=== PATIENT | male | born 1995 | race Caucasian/White ===

== ENCOUNTER 2022-04-23 14:02 | Outpatient (REF) | payer OTHER, SELFPAY ==
[2022-04-23 14:22] LABS: Strep A Nucleic Acid Negative (Negative)
== END 2022-04-23 14:03 | disposition home or self-care (01) ==
LOC: HO.LNP 14:02
PROVIDERS: Visit Provider Internal Medicine
DX: Z20.89 Contact with and (suspected) exposure to other communicable diseases (principal)
CPT/HCPCS: 87651

== ENCOUNTER 2022-10-31 14:38 | Outpatient (REF) | payer OTHER, SELFPAY ==
--- NOTE | ~2022-10-31 | XR_ITS ---
EXAMINATION: Bilateral shoulder. CLINICAL INDICATIONS: Pain. COMPARISON: None. TECHNIQUE: 3 views each shoulder. FINDINGS: Right shoulder: There is loss of glenohumeral joint space. The AC joint space is maintained. No visible acute fracture, dislocation or subluxation seen. No bony erosive changes. The soft tissues are normal. Left shoulder: The glenohumeral joint space is reduced. No visible acute fracture, dislocation or subluxation seen. No bony erosive changes. The soft tissues are normal. XR/XR shoulder RT min 2V IMPRESSION: Mild degenerative changes of both shoulder joints with loss of joint space. No acute fracture, dislocation or loose body seen.
--- NOTE | ~2022-10-31 | XR_ITS ---
EXAMINATION: Bilateral shoulder. CLINICAL INDICATIONS: Pain. COMPARISON: None. TECHNIQUE: 3 views each shoulder. FINDINGS: Right shoulder: There is loss of glenohumeral joint space. The AC joint space is maintained. No visible acute fracture, dislocation or subluxation seen. No bony erosive changes. The soft tissues are normal. Left shoulder: The glenohumeral joint space is reduced. No visible acute fracture, dislocation or subluxation seen. No bony erosive changes. The soft tissues are normal. XR/XR shoulder LT min 2V IMPRESSION: Mild degenerative changes of both shoulder joints with loss of joint space. No acute fracture, dislocation or loose body seen.
[2022-10-31 15:18] LABS: MANUAL DIFF FLAG NO
[2022-10-31 15:21] LABS: Basophils Percent Auto 0.3 % (0-2); Eosinophils Absolute Auto 0.1 X10*3/uL (0.0-0.4); Eosinophils Percent Auto 1.7 % (0-4); Hematocrit 44.3 % (42.0-52.0); Imm Gran Abs Auto 0.01 X10*3/uL (0.00-0.03); Imm Gran Pct Auto 0.2 % (0.0-0.4); Lymphocytes Absolute Auto 1.9 X10*3/uL (1.2-4.9); Lymphocytes Percent Auto 32.6 % (20-40); Mean Corpuscular HGB Conc 33.9 g/dl (31.0-36.0); Mean Corpuscular Hemoglobin 29.4 pg (27.0-33.0); Mean Corpuscular Volume 86.7 fL (80.0-98.0); Mean Platelet Volume 10.1 fL (9.4-12.4); Monocytes Absolute Auto 0.6 X10*3/uL (0.1-1.2); Monocytes Percent Auto 9.4 % (2-11); Neutrophils Absolute Auto 3.3 x10*3/uL (2.0-8.3); Neutrophils Percent Auto 55.8 % (45-73); Platelet Count 250 X10*3/uL (160-400); Red Blood Count 5.11 X10*6/uL (4.60-5.80); Red Cell Distribution Width 12.1 % (11.0-16.0)
[2022-10-31 15:27] LABS: Estimated Average Glucose 105 mg/dL; Hemoglobin A1c % 5.3 %
[2022-10-31 16:10] LABS: Alanine Aminotransferase 27 U/L (0-40); Albumin Level 4.7 g/dL (3.5-5.0); Alkaline Phosphatase 68 U/L (39-117); Anion Gap 13 (12-20); Aspartate Amino Transferase 25 U/L (5-37); Bilirubin Total 0.5 mg/dL (0.0-1.0); Blood Urea Nitrogen 17 mg/dL (9-16); Calcium 9.8 mg/dL (8.4-10.2); Carbon Dioxide 29 mmol/L (22-29); Chloride 104 mmol/L (96-108); Estimated Glomerular Filt Rate > 60; Glucose Random 86 mg/dL (60-115); Iron 111 mcg/dL (45-160); Percent Iron Saturation 34 % (15-50); Potassium 4.6 mmol/L (3.3-5.1); Sodium 141 mmol/L (135-145); Total Iron Binding Capacity 322 mcg/dL (228-428); Total Protein 7.8 g/dL (6.5-8.0); Unsaturated Iron Binding 211 ug/dL
[2022-10-31 16:38] LABS: Folate 12.7 ng/mL (> or = 4.0); Vitamin B12 366 pg/mL (200-900)
[2022-11-05 14:59] LABS: Vitamin D 25-OH, D2 <4 ng/mL; Vitamin D 25-OH, D3 21 ng/mL; Vitamin D 25-OH, Total 21 ng/mL (30-100)
[2022-11-05 23:08] LABS: Testosterone, Free 42.6 pg/mL (35.0-155.0); Testosterone, Total 238 ng/dL (250-1100)
== END 2022-10-31 14:39 | disposition home or self-care (01) ==
LOC: HO.HMGCX 14:38
PROVIDERS: PCP Internal Medicine; Visit Provider Nurse Practitioner Acute Care
DX: M25.511 Pain in right shoulder (principal); M25.512 Pain in left shoulder; R53.83 Other fatigue
CPT/HCPCS: 36415; 73030; 80053; 82306; 82607; 82746; 83036; 83540; 84402; 84403; 85025

== ENCOUNTER 2022-11-28 09:54 | Outpatient (REF) | payer OTHER, SELFPAY ==
[2022-11-28 10:32] LABS: Basophils Percent Auto 0.3 % (0-2); Hematocrit 40.8 % (42.0-52.0); Hemoglobin 13.8 g/dl (14.0-18.0); Imm Gran Abs Auto 0.01 X10*3/uL (0.00-0.03); Imm Gran Pct Auto 0.3 % (0.0-0.4); Lymphocytes Percent Auto 31.5 % (20-40); MANUAL DIFF FLAG SCAN; Mean Corpuscular HGB Conc 33.8 g/dl (31.0-36.0); Mean Corpuscular Hemoglobin 28.5 pg (27.0-33.0); Mean Corpuscular Volume 84.3 fL (80.0-98.0); Mean Platelet Volume 9.6 fL (9.4-12.4); Monocytes Absolute Auto 0.9 X10*3/uL (0.1-1.2); Monocytes Percent Auto 30.5 % (2-11); Neutrophils Absolute Auto 1.1 x10*3/uL (2.0-8.3); Neutrophils Percent Auto 36.4 % (45-73); Platelet Count 178 X10*3/uL (160-400); Red Blood Count 4.84 X10*6/uL (4.60-5.80); Red Cell Distribution Width 11.9 % (11.0-16.0); SCAN SMEAR FLAG 1; White Blood Count 3.1 X10*3/uL (4.8-10.8)
[2022-11-28 10:47] LABS: Alanine Aminotransferase 25 U/L (0-40); Albumin Level 4.4 g/dL (3.5-5.0); Alkaline Phosphatase 55 U/L (39-117); Anion Gap 12 (12-20); Aspartate Amino Transferase 25 U/L (5-37); Bilirubin Total 0.7 mg/dL (0.0-1.0); Blood Urea Nitrogen 17 mg/dL (9-16); Calcium 9.2 mg/dL (8.4-10.2); Carbon Dioxide 25 mmol/L (22-29); Chloride 108 mmol/L (96-108); Cholesterol 190 mg/dL; Estimated Glomerular Filt Rate > 60; Glucose Random 95 mg/dL (60-115); HDL Cholesterol 39 mg/dL; LDL Cholesterol Calculated 142 mg/dl; Potassium 4.2 mmol/L (3.3-5.1); Sodium 141 mmol/L (135-145); Total Protein 7.2 g/dL (6.5-8.0); Triglycerides 49 mg/dL
[2022-11-28 10:58] LABS: SLIDE REVIEW VERIFIED
== END 2022-11-28 09:55 | disposition home or self-care (01) ==
LOC: HO.LAB 09:54
PROVIDERS: PCP Internal Medicine; Visit Provider Internal Medicine
DX: Z00.00 Encounter for general adult medical examination without abnormal findings (principal)
CPT/HCPCS: 36415; 80053; 80061; 85025

== ENCOUNTER 2022-12-01 16:16 | Outpatient (REF) | payer OTHER, SELFPAY ==
[2022-12-01 18:42] LABS: Monotest Negative (Negative)
== END 2022-12-01 16:17 | disposition home or self-care (01) ==
LOC: HO.LAB 16:16
PROVIDERS: PCP Internal Medicine; Visit Provider Internal Medicine
DX: R53.83 Other fatigue (principal)
CPT/HCPCS: 36415; 86308

== ENCOUNTER 2022-12-03 16:00 | Outpatient (REF) | payer OTHER, SELFPAY ==
[2022-12-03 17:53] LABS: Immature Retic Fraction 7.3 % (2.3-13.4); Reticulocyte Percent 1.4 % (0.5-1.8); Reticulocytes Absolute 0.069 X10*6/uL (0.026-0.095)
[2022-12-03 18:13] LABS: Lactate Dehydrogenase 216 U/L (118-273)
[2022-12-03 18:34] LABS: Free T4 (Free Thyroxine) 1.01 ng/dL (0.71-1.85); Thyroid Stimulating Hormone 0.99 uIU/mL (0.32-4.0)
[2022-12-04 21:53] LABS: Thyroid Peroxidase Antibodies 7 IU/mL (<9)
== END 2022-12-03 16:01 | disposition home or self-care (01) ==
LOC: HO.LAB 16:00
PROVIDERS: PCP Internal Medicine; Visit Provider Internal Medicine
DX: R53.83 Other fatigue (principal); D64.9 Anemia, unspecified; D72.819 Decreased white blood cell count, unspecified
CPT/HCPCS: 36415; 83615; 84439; 84443; 85045; 86376

== ENCOUNTER 2022-12-23 12:28 | Outpatient (REF) | payer OTHER, SELFPAY ==
[2022-12-23 13:23] LABS: MANUAL DIFF FLAG NO
[2022-12-23 13:26] LABS: Basophils Percent Auto 0.2 % (0-2); Eosinophils Absolute Auto 0.1 X10*3/uL (0.0-0.4); Eosinophils Percent Auto 1.3 % (0-4); Hemoglobin 14.5 g/dl (14.0-18.0); Imm Gran Abs Auto 0.01 X10*3/uL (0.00-0.03); Imm Gran Pct Auto 0.2 % (0.0-0.4); Lymphocytes Absolute Auto 1.6 X10*3/uL (1.2-4.9); Lymphocytes Percent Auto 30.2 % (20-40); Mean Corpuscular HGB Conc 34.5 g/dl (31.0-36.0); Mean Corpuscular Hemoglobin 28.9 pg (27.0-33.0); Mean Corpuscular Volume 83.8 fL (80.0-98.0); Mean Platelet Volume 9.8 fL (9.4-12.4); Monocytes Absolute Auto 0.6 X10*3/uL (0.1-1.2); Monocytes Percent Auto 11.8 % (2-11); Neutrophils Percent Auto 56.3 % (45-73); Platelet Count 230 X10*3/uL (160-400); Red Blood Count 5.01 X10*6/uL (4.60-5.80); Red Cell Distribution Width 12.2 % (11.0-16.0); White Blood Count 5.3 X10*3/uL (4.8-10.8)
[2022-12-23 13:54] LABS: C Reactive Protein < 0.10 mg/dL (< or = 0.50)
[2022-12-23 14:16] LABS: Erythrocyte Sedimentation Rate 6 MM/HR (0-15)
== END 2022-12-23 12:29 | disposition home or self-care (01) ==
LOC: HO.10HDL 12:28
PROVIDERS: Visit Provider Internal Medicine
DX: D64.9 Anemia, unspecified (principal); R53.83 Other fatigue
CPT/HCPCS: 36415; 85025; 85652; 86140

== ENCOUNTER 2024-04-26 14:59 | Outpatient (REF) | payer BC, SELFPAY ==
[2024-04-26 15:15] LABS: MANUAL DIFF FLAG NO
[2024-04-26 15:56] LABS: Basophils Percent Auto 0.3 % (0-2); Eosinophils Absolute Auto 0.1 X10*3/uL (0.0-0.4); Eosinophils Percent Auto 0.9 % (0-4); Hemoglobin 14.7 g/dl (14.0-18.0); Imm Gran Abs Auto 0.02 X10*3/uL (0.00-0.03); Imm Gran Pct Auto 0.3 % (0.0-0.4); Lymphocytes Absolute Auto 2.2 X10*3/uL (1.2-4.9); Lymphocytes Percent Auto 29.3 % (20-40); Mean Corpuscular HGB Conc 35.9 g/dl (31.0-36.0); Mean Corpuscular Hemoglobin 30.1 pg (27.0-33.0); Mean Corpuscular Volume 83.8 fL (80.0-98.0); Mean Platelet Volume 9.8 fL (9.4-12.4); Monocytes Absolute Auto 0.7 X10*3/uL (0.1-1.2); Monocytes Percent Auto 9.2 % (2-11); Neutrophils Absolute Auto 4.6 x10*3/uL (2.0-8.3); Platelet Count 246 X10*3/uL (160-400); Red Blood Count 4.89 X10*6/uL (4.60-5.80); White Blood Count 7.6 X10*3/uL (4.8-10.8)
[2024-04-26 16:44] LABS: Anion Gap 10 (12-20); Blood Urea Nitrogen 12 mg/dL (9-16); Calcium 10.2 mg/dL (8.4-10.2); Carbon Dioxide 30 mmol/L (22-29); Chloride 103 mmol/L (96-108); Estimated Glomerular Filt Rate > 60; Glucose Random 84 mg/dL (60-115); Potassium 3.9 mmol/L (3.3-5.1); Sodium 139 mmol/L (135-145)
[2024-04-30 15:32] LABS: Testosterone, Free 46.3 pg/mL (35.0-155.0); Testosterone, Total 291 ng/dL (250-1100)
== END 2024-04-26 15:00 | disposition home or self-care (01) ==
LOC: HO.LAB 14:59
PROVIDERS: PCP Internal Medicine; Visit Provider Internal Medicine
DX: E55.9 Vitamin D deficiency, unspecified (principal); E29.1 Testicular hypofunction; M54.2 Cervicalgia
CPT/HCPCS: 36415; 80048; 82306; 84402; 84403; 85025

== ENCOUNTER 2024-09-12 12:17 | Outpatient (REF) | payer BC, SELFPAY ==
[2024-09-12 13:03] LABS: Basophils Percent Auto 0.5 % (0-2); Eosinophils Absolute Auto 0.1 X10*3/uL (0.0-0.4); Eosinophils Percent Auto 1.2 % (0-4); Hematocrit 40.7 % (42.0-52.0); Hemoglobin 14.4 g/dl (14.0-18.0); Lymphocytes Absolute Auto 1.7 X10*3/uL (1.2-4.9); Lymphocytes Percent Auto 40.9 % (20-40); MANUAL DIFF FLAG NO; Mean Corpuscular HGB Conc 35.4 g/dl (31.0-36.0); Mean Corpuscular Hemoglobin 29.9 pg (27.0-33.0); Mean Corpuscular Volume 84.6 fL (80.0-98.0); Mean Platelet Volume 9.6 fL (9.4-12.4); Monocytes Absolute Auto 0.4 X10*3/uL (0.1-1.2); Monocytes Percent Auto 9.6 % (2-11); Neutrophils Percent Auto 47.8 % (45-73); Platelet Count 210 X10*3/uL (160-400); Red Blood Count 4.81 X10*6/uL (4.60-5.80); Red Cell Distribution Width 11.8 % (11.0-16.0); White Blood Count 4.3 X10*3/uL (4.8-10.8)
--- OUTSIDE RECORDS SUMMARY | 2024-09-12 13:11 | XMS_ITS | Data Portability ---
Author Organization [facility] Address [address] [place] [address] Assessment No assessment recorded. Plan of Treatment Reminders Order Date Submit Date Provider Last Modified By Organization Details Last Modified Time Details Appointments None record ed. Lab None record ed. Referral None record ed. Procedures None record ed. Surgeries None record ed. Imaging None record ed. Medication Orders None record ed. Patient TargetsNo targets recorded. Patient InstructionsNo instructions recorded. Reason for Referral None Reported. Procedures Surgical History Date Name Laterality Status Provider Name and Address Organization Details Recorded Time OC-UDS Send Out Template DOT completed [facility]INA [facility] 08/28/2022 13:15:22 Imaging Results None recorded. Procedure Notes None recorded. Medical Equipment None Reported. Vitals None Recorded Social History None recorded. Functional Status None recorded. Mental Status None recorded. Family History Nothing Reported. Medical History No medical history recorded. Past Encounters Encounter ID Performer Location Encounter Start Date Encounter Closed Date Diagnosis/Indication Diagnosis SNOMED-CT Code Diagnosis ICD10 Code Diagnosis Note [id number] [address] [address] 12/02/2015 16:22:06 12/02/2015 18:56:21 [id number] Francesco Batista DO [address] [place] [address] 08/28/2022 13:00:32 08/28/2022 13:23:33 History and physical examination, pre-employment 634368325 Z02.1 Health Concerns Section Related Observation LastModified by Organization Detai ls LastModified Time None Recorded Concern Status LastModified by Organization Details LastModified Time None Recorded Advance Directives Directive None Recorded Payers Encounter Date Sequence Insurance Name Policy Number Policy Santillan Covered Member ID Santillan Member ID Guarantor Name 12/02/2015 1 [place] JUANCARLOS (PPO) [id number] Eloise Laboy [id number] Yuniel Laboy 08/28/2022 OC-ESCREEN Yuniel Laboy [id number] ZW Yuniel Laboy
[2024-09-12 15:19] LABS: Alanine Aminotransferase 17 U/L (0-40); Albumin Level 4.7 g/dL (3.5-5.0); Anion Gap 11 (12-20); Aspartate Amino Transferase 22 U/L (5-37); Bilirubin Total 0.5 mg/dL (0.0-1.0); Blood Urea Nitrogen 14 mg/dL (9-16); Calcium 9.8 mg/dL (8.4-10.2); Carbon Dioxide 28 mmol/L (22-29); Chloride 104 mmol/L (96-108); Cholesterol 158 mg/dL (<200); Estimated Glomerular Filt Rate > 60; Glucose Fasting 92 mg/dL (60-99); HDL Cholesterol 45 mg/dL (>40); LDL Cholesterol Calculated 93 mg/dL (<100); Potassium 4.2 mmol/L (3.3-5.1); Sodium 139 mmol/L (135-145); Total Protein 8.2 g/dL (6.5-8.0); Triglycerides 100 mg/dL (<150)
[2024-09-12 15:57] LABS: Alkaline Phosphatase 42 U/L (39-117)
[2024-09-16 15:09] LABS: Testosterone, Free 79.8 pg/mL (35.0-155.0); Testosterone, Total 508 ng/dL (250-1100)
[2024-09-16 17:28] LABS: VITAMIN D (1,25 OH) D3 33 pg/mL; Vit D (1,25-Dihydroxy) Total 33 pg/mL (18-72); Vitamin D (1,25 OH) D2 <8 pg/mL
== END 2024-09-12 12:18 | disposition home or self-care (01) ==
LOC: HO.10HDL 12:17
PROVIDERS: Visit Provider Internal Medicine
DX: D64.9 Anemia, unspecified (principal); R53.83 Other fatigue; E29.1 Testicular hypofunction
CPT/HCPCS: 36415; 80053; 80061; 82652; 84402; 84403; 85025

== ENCOUNTER 2024-10-05 14:43 | Outpatient (AMB) | payer BC, SELFPAY ==
--- NOTE | 2024-10-05 14:49 | MHC.OFFVIS ---
Vital Signs 10/05/24 14:53 Height 5 ft 9 in Weight 184 lb 6 oz BMI 27.2 BP 141/84 H Blood Pressure Location Rt brachial Position Sitting Pulse 87 Pulse Source Pulse Oximeter Pulse Oximetry (%) 100 Oxygen Delivery Method Room Air Intake Visit Reasons: Back pain radiating to left leg Intake Note: Pain today 2/10 Change Over Required: No Accompanied by: Self / Same As Patient Allergies No Known Allergies Allergy (Verified 10/31/22 14:20) HPI Comments Details: Yuniel is a very pleasant 29-year-old male who presents to the office today for evaluation and management of his left lower back pain He has been suffering with this pain for approximately 8 months, denies inciting injury, fall, trauma. Pain today is rated as a 2/10, constant and worse with movement Recent MRI reviewed, results as per below Denies radiculopathy of either lower extremity Endorses left lower back pain with radiation down back of his left thigh and up to the left lower back. Occasionally pain will radiate around to the side of his hip. Denies burning, numbness, tingling lower extremity Denies red flag symptoms including new loss of bowel, bladder or saddle anesthesia Pain is exacerbated by sitting for too long, standing for too long, utilizing the stairs. Patient works as a local combination truck driver and states that pain is most severe he is driving for work. He reports some improvement with ibuprofen. No improvement with muscle relaxer, chiropractor. Denies history of physical therapy, acupuncture, massage or injections In terms of muscle damage condition is described as dull, sore, aching, heavy, spreading, tight, squeezing Pain is negatively impacting patient's enjoyment of life, general activity, sleep, work Denies implantable devices, pacemaker or defibrillator Denies current use of anticoagulants Endorses use of vape. Social EtOH use. Denies recreational substance use. [facility] Medical History (Updated 10/05/24 @ 15:01 by Christine Stinson) Constipation GERD (gastroesophageal reflux disease) Anxiety Palpitations Labyrinthitis, bilateral Other specified dorsopathies, sacral and sacrococcygeal region Pain in left hip Other obesity due to excess calories Iron deficiency anemia, unspecified Abnormal level of enzymes in specimens from male genital organs Acute pharyngitis, unspecified Low testosterone Anemia Fatigue Vitamin D deficiency Social History Alcohol intake: current Alcohol intake frequency: a few times a month e-Cigarette/Vaping Use: Currently Using Review of Systems Const All systems reviewed & are unremarkable except as noted in HPI and below Physical Exam General: awake, alert, oriented. Answers questions appropriately. Fully engaged in examination. Skin: warm, dry, intact HEENT: Normocephalic. Hearing intact. Cardiac: External chest normal in appearance. Respiratory: No cough, audible wheezing or stridor. Abdomen: without gross distension. MS: No obvious swelling or deformities. Able to stand on bilateral tiptoes and bilateral heels.? Able to transition from sit to stand unassisted. Ambulates with bilaterally normal heel strike and toe off Tenderness over left PSIS Nontender over midline lumbar vertebrae and lumbar paraspinal muscles Left SI: Thigh thrust, Gaenslen, SI compression positive SLR negative bilaterally Lumbar range of motion intact No pain with internal/external rotation of the left hip Neurological: Oriented to person, place, time and situation. Thought process intact. No gait abnormalities appreciated. Psychiatric: Appropriate mood and affect. Good judgment and insight. Results Reviewed Results Reviewed: 08/31/2024 MR SPINE LUMBAR without CONTRAST INDICATION: Low back pain, stiffness in back and left hip, left leg pain for six months. FINDINGS: Normal lumbar alignment is demonstrated. Vertebral heights are well maintained. Bone marrow signal is within normal limits, and no suspicious osseous lesion is identified. Conus medullaris is unremarkable. Paraspinal soft tissues and visualized portions of the abdomen and pelvis are unremarkable. At L1-2 there is no significant disc herniation or protrusion. No central canal or neural foraminal stenosis is demonstrated. At L2-3 there is no significant disc herniation or protrusion. No central canal or neural foraminal stenosis is demonstrated. At L3-4 there is no significant disc herniation or protrusion. No significant canal stenosis, mild bilateral foraminal narrowing. At L4-5 there is no significant disc herniation or protrusion. No significant canal stenosis, vzfg-ze-wlkiqjqe bilateral foraminal narrowing. At L5-S1 there is no significant disc herniation or protrusion. No significant canal stenosis, qhxc-ic-unqsapeb bilateral foraminal narrowing. IMPRESSION: 1.Jfzr-rq-apgapwoo multilevel degenerative disc disease with loss of disc height and disc desiccation seen diffusely throughout the lumbar spine. 2.Vertebral heights are preserved. No malalignments. 3.No significant canal stenosis or disc herniation. 4.No limiting foraminal stenosis. Multilevel canal and foraminal narrowing are mild/flfr-ie-mivxcdwb. 5.No STIR signal abnormality to suggest bone marrow edema, soft tissue or ligamentous injury. Assessment & Plan Assessment & Plan (1) Sacroiliac joint dysfunction of left side: Code(s): M53.3 - Sacrococcygeal disorders, not elsewhere classified Category: Medical Plan Yuniel is a very pleasant 29-year-old male who presented to the office today for evaluation and management of his chronic lower back pain History, physical exam and provocative testing consistent with left sacroiliac joint dysfunction Order placed for PT eval and treat Salonpas topical patches, patient instructed on use. Discussed options for treatment including diagnostic interventional testing, epidural steroid injections, peripheral nerve stimulation with Sprint, RFA and more permanent neuromodulation. If no improvement with physical therapy will plan for left diagnostic sacroiliac joint injection with local anesthetic. All questions and concerns were answered, patient agrees with the plan. Follow up after PT, sooner if needed Medications: New camphor-methyl salicyl-menthol 3.1 %-10 %-6 % (large) (Salonpas) may leave on for up to 12 hrs 1 patch topical DAILY PRN 6 ea 6RF pain Coding Level of Care Code New Pt Level 4 (27159) Complex EM visit Add On G2211 Diagnoses Sacroiliac joint dysfunction of left side M53.3
[2024-10-05 14:53] VITALS: BP 141/84; PULSE 87; O2SAT 100; BMI 27.2
--- OUTSIDE RECORDS SUMMARY | 2024-10-05 15:51 | XMS_ITS | Data Portability ---
Author Organization [facility] Address [address] [place] [address] Assessment No assessment recorded. Plan of Treatment [...] SNOMED-CT Code Diagnosis ICD10 Code Diagnosis Note [id number] [address] [address] 12/02/2015 16:22:06 12/02/2015 18:56:21 [id number] Francesco Batista DO [address] [place] [address] 08/28/2022 13:00:32 08/28/2022 13:23:33 History and physical examination, pre-employment [id number] Z02.1 Health Concerns Section Related Observation LastModified by Organization Detai ls LastModified Time None Recorded Concern Status LastModified by Organization Details LastModified Time None Recorded Advance Directives Directive None Recorded Payers Encounter Date Sequence Insurance Name Policy Number Policy Santillan Covered Member ID Santillan Member ID Guarantor Name 12/02/2015 1 [place]UANCARLOS ([place]O) [id number] Eloise Laboy [id number] Yuniel Laboy 08/28/2022 OC-ESCREEN Yuniel Laboy [id number] Yuniel Laboy
== END 2024-10-05 15:23 | disposition home or self-care (01) ==
PROVIDERS: PCP Internal Medicine; Referring Provider Internal Medicine; Visit Provider Registered Nurse Emergency
DX: M53.3 Sacrococcygeal disorders, not elsewhere classified (principal)
CPT/HCPCS: 99204

== ENCOUNTER → 2024-12-20 16:00 | Outpatient (AMB) | payer BC, SELFPAY ==
--- NOTE | 2024-12-20 16:24 | A.OFFPC_ITS ---
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 Accompanied by: Self / Same As Patient Allergies No Known Allergies Allergy (Verified 12/20/24 16:28) Tobacco use date assessed: 12/20/24 Dental Screening Dental Screen Date: 12/20/24 Did you have a dental visit in the last 12 months?: No Did you have a dental problem in the last 6 months where you did not have access to dental care?: No Was dental information given to patient?: Patient has dentist HPI HPI Comments History of Present Illness Details 29-year-old male with history of chronic low back pain and insomnia as well as mood disorder presents to the office today for follow-up evaluation for ongoing short-term disability. back pain. The patient has been suffering from midline and left-sided low back pain with left-sided radiculopathy ongoing for about 8 months. No known inciting injury or trauma. He did have MRI of the lumbar spine performed externally which showed jjww-me-oytlxgex multilevel degenerative disc disease with loss of disc height and disc desiccation diffusely throughout the lumbar spine. Vertebral heights preserved without any malalignment. No canal stenosis or disc herniation. No limiting foraminal stenosis though mild to moderate foraminal narrowing is noted. He has been seen by pain management who recommended physical therapy which he reports he did complete for about 4 weeks but was not recommended for further therapy. 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 He states sometimes th e pain is so bad that he feels nauseous. He has been taking ibuprofen but states he does not like taking much medication out of concern for his renal and liver function. No alarm symptoms. He is also struggling with insomnia. He states this is partly related to pain but has always had difficulty with sleeping. He has trialed a number of supplements without relief. He has a reasonable bedtime routine without overstimulation. He does endorse having anxiety and depression but has not sought out treatment for this. He is inquiring about a sleep study. Denies snoring or apneic episodes. He did recently have labs performed which were largely within normal limits/unremarkable. [facility] Medical History (Updated 12/20/24 @ 17:37 by JENNIFER Mejía) Constipation GERD (gastroesophageal reflux disease) Anxiety Palpitations Labyrinthitis, bilateral Other specified dorsopathies, sacral and sacrococcygeal region Pain in left hip Other obesity due to excess calories Iron deficiency anemia, unspecified Abnormal level of enzymes in specimens from male genital organs Acute pharyngitis, unspecified Low testosterone Anemia Fatigue Vitamin D deficiency Family History (Updated 12/20/24 @ 16:33 by YISEL Odonnell) Mother No problems noted. Father No problems noted. Social History (Updated 12/20/24 @ 16:34 by YISEL Odonnell) Housing: Apartment Alcohol intake: current Alcohol intake frequency: holidays/special occasions only Tobacco use type: Smokeless Tobacco e-Cigarette/Vaping Use: Currently Using service: No Current occupational status: employed Cognitive needs: No Hearing needs: No Vision needs: Yes (Rx glasses) Questionnaire PHQ-9 Over the last 2 weeks, how often have you been bothered by any of the following problems? 1. Little interest or pleasure in doing things: more than half the days 2. Feeling down, depressed, or hopeless: more than half the days 3. Trouble falling or staying asleep, or sleeping too much: nearly every day 4. Feeling tired or having little energy: nearly every day 5. Poor appetite or overeating: not at all 6. Feeling bad about yourself - or that you are a failure or have let yourself or your family down: more than half the days 7. Trouble concentrating on things, such as reading the newspaper or watching television: more than half the days 8. Moving or speaking so slowly that other people could have noticed. Or the opposite - being so fidgety or restless that you have been moving around a lot more than usual: not at all 9. Thoughts that you would be better off or of hurting yourself in some way: not at all Total score: 14 Source: Developed by Drs. Bartolo Cook, Rhina Finch, Be Ashby and colleagues, with an educational zayda from [employer]. Thrive Questionnaire Date Thrive assessed: 12/20/24 I am a: Patient What is your living situation today?: I have a steady place to live Within the past 12 months, did the food you bought not last and you didn't have the money to get more?: Never true Within the past 12 months, did you worry whether your food would run out before you got money to buy more?: Never true Do you have trouble paying for medicines?: No Do you have trouble getting transportation to medical appointments?: No Do you have trouble paying your heating and electricity bill?: No Do you have trouble taking care of your child, family member or friend?: No Do you have trouble with day-to-day activities such as bathing, preparing meals, shopping, managing finances, etc.?: No Are you currently unemployed and looking for a job?: No Are you interested in more education?: No Please select the resources that you would like help with: None THRIVE Score: 0 AUDIT C Alcohol Use Questionnaire (AUDIT-C) 1. How often do you have a drink containing alcohol?: Monthly or less Total Score: 1 ROOSEVELT-7 AMB Questionnaire ROOSEVELT-7 Date ROOSEVELT - 7 assessed: 12/20/24 Feeling nervous, anxious, or on edge: 3 = Nearly every day Not being able to stop or control worryin = Nearly every day Worrying too much about different things: 3 = Nearly every day Trouble relaxin = More than half the days Being so restless that it is hard to sit still: 3 = Nearly every day Becoming easily annoyed or irritable: 2 = More than half the days Feeling afraid as if something awful might happen: 2 = More than half the days Total ROOSEVELT-7 score (0-4 normal; 5-9 mild; 10-14 moderate; 15-21 severe): 18 Source: Developed by Drs. Bartolo Cook, Rhina Finch, Be Ashby and colleagues, with an educational zayda from [employer]. Review of Systems Const All systems reviewed & are unremarkable except as noted in HPI and below Physical exam (Primary Care) Vital Signs: Last Vital Signs Temp 98.0 F 12/20/24 16:34 Pulse 100 12/20/24 16:34 BP 124/76 12/20/24 16:34 Pulse Ox 99 12/20/24 16:34 Oxygen Delivery Method Room Air 12/20/24 16:34 BMI result Body Mass Index 28.2 Tobacco/Smoking Status: Tobacco use Status Tobacco use date assessed 12/20/24 12/20/24 16:28 Patient Tobacco Use Status 12/20/24 16:28 Tobacco use type Smokeless Tobacco 12/20/24 16:28 e-Cigarette/Vaping Use Currently Using 12/20/24 16:34 PHQ-9: PHQ-9 Score PHQ-9: Total score 14 12/20/24 16:37 Thrive Assessment: Date of Thrive Assessment Date Thrive assessed 12/20/24 12/20/24 16:28 Const Other: Constitutional - Awake and Alert, No apparent distress Eyes - PERRL Extremities - no calf tenderness bilaterally, no swelling Musculoskeletal - no midline or paraspinal tenderness to palpation. Full extens ion and flexion. Negative straight leg raises bilaterally Skin - Warm/Dry Neurological - Alert & oriented x3, 5/5 strength BUE and BLE , symmetric 2+ patellar reflexes bilaterally Psychological - Appropriate affect Coding Level of Care Code New Pt Level 4 (96801) Complex EM visit Add On G2211 Diagnoses Insomnia G47.00 Sacroiliac joint dysfunction of left side M53.3 Lumbar radiculopathy M54.16 Anxiety F41.9 Assessment & Plan Assessment & Plan (1) Insomnia: Code(s): G47.00 - Insomnia, unspecified Category: Medical Plan: Likely multifactorial in the setting of pain as well as anxiety/depression that has gone on managed. Will trial pain management as below. He is also given a prescription for hydroxyzine 25 mg to use as needed at bedtime. Discussed behavioral modifications to promote healthy sleep initiation and maintenance. Also recommend seeking out a counselor for CBT or other appropriate therapies for management of anxiety. Reviewed lab results. EEG is also ordered for further evaluation of insomnia. Will recheck CBC, TSH, iron, and vitamin B12 given ongoing insomnia and history of anemia (2) Sacroiliac joint dysfunction of left side: Code(s): M53.3 - Sacrococcygeal disorders, not elsewhere classified Category: Medical Plan: Musculoskeletal examination unremarkable. He has completed physical therapy. MRI reviewed. Discussed that referral to orthopedic/neurosurgery is not indicated as MRI does not reveal anything requiring surgical intervention. Recommended he follow-up again with pain management to discuss further intervent ional therapies. Discussion had regarding pain management including ongoing use of ibuprofen or Tylenol. He can also continue using Salonpas. Recommend ongoing exercises as recommended by Physical therapy. He can trial a 10s machine. States he has been to a chiropractor which did not help. (3) Lumbar radiculopathy: Code(s): M54.16 - Radiculopathy, lumbar region Category: Medical Plan: See above. We will also trial gabapentin 300 mg at bedtime. Counseled on side effects. Short-term disability paperwork to be filled out (4) Anxiety: Code(s): F41.9 - Anxiety disorder, unspecified Category: Medical Plan: Recommend seeking out a counselor as above Orders: Orders EEG electroencephalogram Today G47.00 - Insomnia, unspecified Vitamin B12 Today G47.00 - Insomnia, unspecified IRON PROFILE Today G47.00 - Insomnia, unspecified Complete Blood Count Auto Diff Today G47.00 - Insomnia, unspecified TSH reflex Free T4 Today G47.00 - Insomnia, unspecified Medications: New gabapentin 300 mg PO BEDTIME 90 caps 0RF hydroxyzine HCl 25 mg PO BEDTIME PRN 90 tabs 1RF insomnia Patient Instructions: [email or web address]
--- OUTSIDE RECORDS SUMMARY | 2024-12-20 16:29 | XMS_ITS | Encounter Summary ---
Author Organization [facility] Address [address] [place] [address] Care Team Providers Care Assistant Construction Superintendent Name Role Phone Pcp, No Primary Care Provider Unavailabl e Encounter Details Date Type Department Care Team (Late st Contact Info) Description 11/13/2024 Scanned Document [address] [place] [phone] Provider, Generic Social History Tobacco Use Types Packs/Day Years Used Date Smoking Tobacco: Former Cigarettes Q uit: 2015 Smokeless Tobacco: Current Comments:vape Alcohol Use Standard Drinks/Week Comments Yes 0 (1 standard drink = 0.6 oz pur e alcohol) monthly Sex and Gender Information Value Date Recorded Sex Assigned at Not on file Legal Sex Male 2:37 PM EDT Gender Identity Not on file Sexual Orientation Not on file documented as of this encounter Plan of Treatment Upcoming Encounters Date Type Department Care Team (Late st Contact Info) Description 02/14/2025 1:00 PM EDT Office Visit [address] [address] Tripp Arellano-Irma Soriano, QUICK SERVICE TECHNICIAN [address] [facility] [address] [place] [address] documented as of this encounter Visit Diagnoses Not on filedocumented in this encounter Care Teams Assistant Construction Superintendent Relationship Specialty Start Date End Date Pcp, No PCP - General General Medicine 11/13/24 documented as of this encounter
--- OUTSIDE RECORDS SUMMARY | 2024-12-20 16:29 | XMS_ITS | Data Portability ---
Author Organization [facility] Address [address] [place] [address] Assessment No assessment recorded. Plan of Treatment [...] SNOMED-CT Code Diagnosis ICD10 Code Diagnosis Note [id number] [facility] [address] [place] [address] 12/02/2015 16:22:06 12/02/2015 18:56:21 [id number] Francesco Batista DO [address] [facility] [address] [place] [address] 08/28/2022 13:00:32 08/28/2022 13:23:33 History and physical examination, pre-employment [id number] Z02.1 Health Concerns Section Related Observation LastModified by Organization Detai ls LastModified Time None Recorded Concern Status LastModified by Organization Details LastModified Time None Recorded Advance Directives Directive None Recorded Payers Insurance Date Sequence Insurance Name Policy Number Policy Santillan Covered Member ID Santillan Member ID Guarantor Name 08/28/2022 1 [place] ([place]O) [id number] Eloise Laboy [id number] Yuniel Laboy 08/28/2022 OC-ESCREEN Yuniel Laboy [id number] Yuniel Laboy
--- OUTSIDE RECORDS SUMMARY | 2024-12-20 16:29 | XMS_ITS | Encounter Summary ---
Author Organization [facility], Located Within [facility] Address [address] [place] [address] Care Team Providers Care Car Rider Name Role Phone Pcp, No Primary Care Provider Unavailabl e Encounter Details Date Type Department Care Team (Late st Contact Info) Description 11/13/2024 Scanned Document [address] [place] [phone] Provider, Generic Social History Tobacco Use Types [...] Description 02/14/2025 1:00 PM EDT Office Visit [address] [address] Tripp Arellano-Irma Soriano, CYBER SECURITY [address] [facility] [address] [place] [address] documented as of this encounter Visit Diagnoses Not on filedocumented in this encounter Care Teams Car Rider Relationship Specialty Start Date End Date Pcp, No PCP - General General Medicine 11/13/24 documented as of this encounter
--- OUTSIDE RECORDS SUMMARY | 2024-12-20 16:29 | XMS_ITS | Clinical Summary ---
Author Organization [facility] Address [address] [place] [address] Care Team Providers Care Truck Driving Name Role Phone Pcp, No Primary Care Provider Unavailabl e Allergies No known active allergies Medications methocarbamol (ROBAXIN) 750 MG tabletIndicatio ns:Chronic bilateral low back pain with left-sided sciatica,Spondy losis Take 1 tablet (750 mg total) by mouth 3 (three) times a day. 21 tablet 11/13/2024 Active predniSONE (DELTASONE) 20 MG tabletIndicatio ns:Chronic bilateral low back pain with left-sided sciatica,Spondy losis Take 2 tablets (40 mg total) by mouth daily. With food. 10 tablet 11/13/2024 Active ibuprofen (MOTRIN) 800 mg tabletIndicatio ns:Chronic bilateral low back pain with left-sided sciatica,Spondy losis Take 1 tablet (800 mg total) by mouth 3 times daily (every 8 hours) as needed for moderate pain. 30 tablet 11/13/2024 Active Active Problems No known active problems Encounters Date Type Department Care Team Description 11/13/2024 6:19 PM EDT Hospital Encounter [facility] [address] [place] [address] Juan Barajas MD 11/13/2024 5:25 PM EDT Office Visit [facility] [address] [place] [address] Juan Barajas MD [place], Geneva N, APRN Chronic bilateral low back pain with left-sided sciatica (Primary Dx); Spondylosis 11/13/2024 Travel 11/13/2024 Scanned Document [address] [place] [address] Provider, Generic 11/13/2024 Scanned Document [facility] [address] [facility] [address] [place] [address] Provider, Generic from Last 3 Months Social History Tobacco Use Types Packs/Day Years Used Date Smoking Tobacco: Former Cigarettes Q uit: 2015 Smokeless Tobacco: Current Tobacco Cessation:Ready to Q uit: Not Asked; Counseling Given: Not Answered Comments:vape Alcohol Use Standard Drinks/Week Comments Yes 0 (1 standard drink = 0.6 oz pur e alcohol) monthly Sex and Gender Information Value Date Recorded Sex Assigned at Not on file Legal Sex Male 2:37 PM EDT Gender Identity Not on file Sexual Orientation Not on file Last Filed Vital Signs Vital Sign Reading Time Taken Comments Blood Pressure 124/72 11/13/2024 5:39 PM EDT Pulse 103 11/13/2024 5:39 PM EDT Temperature 36.8 ??C (98.2 ??F) 11/13/2024 5:39 PM ED T Respiratory Rate - - Oxygen Saturation 100% 11/13/2024 5:39 PM EDT Inhaled Oxygen Concentration - - Weight 84.4 kg (186 lb) 11/13/2024 5:39 PM EDT Height 175.3 cm (5' 9 ) 11/13/2024 5:39 PM EDT Body Mass Index 27.47 11/13/2024 5:39 PM EDT Plan of Treatment Upcoming Encounters Date Type Department Care Team (Late st Contact Info) Description 02/14/2025 1:00 PM EDT Office Visit [facility] [address] [address] Kartik Arellano, CERAMIC PLATER [address] [address] Health Maintenance Due Date Last Done Comments Hepatitis C Virus Screening 1994 HIV Screening 2007 DTaP/Tdap/Td Vaccines (1 - Tdap) 2013 Hepatitis B Vaccines (1 of 3 - 19+ 3-dose series) 2013 COVID-19 Vaccine (2023-2 5 season) 2024 Influenza Vaccine 03/16/2025 HPV Vaccines Aged Out No longer eligi ble based on patient's age to complete this topic Pneumococcal Vaccine: Pediat joselito (0-5 Years) and At-Risk Patients (6 to 49 Years) Aged Out No longer eligible b ased on patient's age to complete this topic Procedures Procedure Name Priority Date/Time Associated Diagnosis Comments XR LUMBAR SPINE 2 OR 3 VIEWS STAT 11/13/2024 6:33 PM EDT Chronic bilateral low back pain with left-sided sciatica from Last 3 Months Results * XR Lumbar spine 2 or 3 views (11/13/2024 6:33 PM EDT) Anatomical Region Laterality Modality L-spine Computed Radiogr aphy 11/13/2024 6:34 PM EDT Impressions 11/13/2024 6:34 PM EDT L5-S1 disc degeneration with spondylosis Narrative 11/13/2024 6:34 PM EDT EXAM: XR LUMBAR SPINE 2 OR 3 VIEWS on 11/13/2024 6:19 PM CLINICAL HISTORY: YUNIEL BYRNES is a 29 years old patient with a submitted history of lumbar sacaral pain. ADDITIONAL HISTORY: Chronic bilateral low back pain with left-sided sciatica, Chronic bilateral low back pain with left-sided sciatica COMPARISONS: None TECHNIQUE: ??AP and lateral views of the lumbar spine performed. FINDINGS: ?? Intact pedicles Aligned spinous processes No diastases The vertebral body heights and alignment are within normal limits Disc space narrowing at L5-S1 Procedure Note Jarod Martin MD - 11/13/2024 EXAM: XR LUMBAR SPINE 2 OR 3 VIEWS on 11/13/2024 6:19 PM CLINICAL HISTORY: YUNIEL BYRNES is a 29 years old patient with a submitted history of lumbarsacaral pain. ADDITIONAL HISTORY: Chronic bilateral low back pain with left-sided sciatica, Chronicbilateral low back pain with left-sided sciatica COMPARISONS: None TECHNIQUE: AP and lateral views of the lumbar spine performed. FINDINGS: Intact pedicles Aligned spinous processes No diastases The vertebral body heights and alignment are within normal limits Disc space narrowing at L5-S1 IMPRESSION: L5-S1 disc degeneration with spondylosis us Claire N Haresh CERAMIC PLATER IMG DIAGNOSTIC IMAGING O RDERABLES Final Result from Last [address] PPO [place] PPO Care Teams Truck Driving Relationship Specialty Start Date End Date Pcp, No PCP - General General Medicine 11/13/24
--- OUTSIDE RECORDS SUMMARY | 2024-12-20 16:29 | XMS_ITS | Encounter Summary ---
Author Organization [facility] Address [address] [place] [address] Care Team Providers Care Spring Salvage Worker Name Role Phone Pcp, No Primary Care Provider Unavailabl e Encounter Details Date Type Department Care Team (Late st Contact Info) Description 11/13/2024 6:19 PM EDT Hospital Encounter [facility] [address] [place] [address] Juan Barajas MD [address] [place] [address] Social History Tobacco Use Types Packs/Day Years [...] Description 02/14/2025 1:00 PM EDT Office Visit [address] [address] Kartik Arellano S, SOLUTIONS DEVELOPMENT ANALYST [address] [address] documented as of this encounter Procedures Procedure Name Priority Date/Time Associated Diagnosis Comments XR LUMBAR SPINE 2 OR 3 VIEWS STAT 11/13/2024 6:33 PM EDT Chronic bilateral low back pain with left-sided sciatica documented in this encounter Results * XR Lumbar spine 2 or [...] IMPRESSION: L5-S1 disc degeneration with spondylosis us [place] N Haresh SOLUTIONS DEVELOPMENT ANALYST IMG DIAGNOSTIC IMAGING O RDERABLES Final Result documented in this encounter Visit Diagnoses Not on filedocumented in this encounter Care Teams Spring Salvage Worker Relationship Specialty Start Date End Date Pcp, No PCP - General General Medicine 11/13/24 documented as of this encounter
[2024-12-20 16:34] VITALS: BP 124/76; PULSE 100; TEMP 36.7; O2SAT 99; BMI 28.2
== END ==
LOC: HO.HMCHD 16:01
PROVIDERS: PCP Internal Medicine; Visit Provider Physician Assistant
DX: G47.00 Insomnia, unspecified (principal); M53.3 Sacrococcygeal disorders, not elsewhere classified; M54.16 Radiculopathy, lumbar region; F41.9 Anxiety disorder, unspecified

== ENCOUNTER → 2024-12-20 16:00 | Outpatient (BNVA) | payer BC, SELFPAY | PROVIDERS: PCP Internal Medicine; Visit Provider Physician Assistant ==

== ENCOUNTER 2024-12-22 13:50 | Outpatient (REF) | payer BC, SELFPAY ==
--- OUTSIDE RECORDS SUMMARY | 2024-12-22 13:54 | XMS_ITS | Encounter Summary ---
Author Organization [facility] Address [address] [place] [address] Care Team Providers Care Patient Registrar Name Role Phone Pcp, No Primary Care Provider Unavailabl e Encounter Details Date Type Department Care Team (Late st Contact Info) Description 11/13/2024 Scanned Document [address] [place] [phone] Provider, Generic Social History Tobacco Use Types [...] 02/14/2025 1:00 PM EDT Office Visit [address] [address] Tripp Arellano-Irma Soriano, PARTS ADMINISTRATOR [address] [facility] [address] [place] [address] documented as of this encounter Visit Diagnoses Not on filedocumented in this encounter Care Teams Patient Registrar Relationship Specialty Start Date End Date Pcp, No PCP - General General Medicine 11/13/24 documented as of this encounter
--- OUTSIDE RECORDS SUMMARY | 2024-12-22 13:54 | XMS_ITS | Clinical Summary ---
Author Organization [facility] Address [address] [place] [address] Care Team Providers Care Enterprise Engineer Name Role Phone Pcp, No Primary Care [...] Description 11/13/2024 6:19 PM EDT Hospital Encounter [facility] [address] [place] [address] Juan Barajas MD 11/13/2024 5:25 PM EDT Office Visit [facility] [address] [place] [address] Juan Barajas MD Beresford, Geneva N, APRN Chronic bilateral low back pain with left-sided sciatica (Primary Dx); Spondylosis 11/13/2024 Travel 11/13/2024 Scanned Document [address] [place] [address] Provider, Generic 11/13/2024 Scanned Document [facility] 80 [facility] [address] [place] [address] Provider, Generic from Last 3 [...] Description 02/14/2025 1:00 PM EDT Office Visit [facility] [address] [address] Kartik Arellano, INDUSTRIAL MILLWRIGHT [address] [address] Health Maintenance Due Date Last Done Comments [...] degeneration with spondylosis us Claire N Haresh INDUSTRIAL MILLWRIGHT IMG DIAGNOSTIC IMAGING O RDERABLES Final Result from Last 3 Months Insurance [employer] [place] PPO [employer] [place] PPO Care Teams Enterprise Engineer Relationship Specialty Start Date End Date Pcp, No PCP - General General Medicine 11/13/24
--- OUTSIDE RECORDS SUMMARY | 2024-12-22 13:54 | XMS_ITS | Encounter Summary ---
Author Organization [facility] Address [address] [place] [address] Care Team Providers Care Back Filler Operator Name Role Phone Pcp, No Primary Care Provider Unavailabl e Encounter Details Date Type Department Care Team (Late st Contact Info) Description 11/13/2024 6:19 PM EDT Hospital Encounter [facility] [address] [place] [address] Juan Barajas MD [address] [place] [address] Social History Tobacco Use Types Packs/Day Years [...] Description 02/14/2025 1:00 PM EDT Office Visit [address] [address] Kartik Arellano S, SPARE FIXER [address] [address] documented as of this encounter Procedures Procedure [...] IMPRESSION: L5-S1 disc degeneration with spondylosis us [place] N Haresh SPARE FIXER IMG DIAGNOSTIC IMAGING O RDERABLES Final Result documented in this encounter Visit Diagnoses Not on filedocumented in this encounter Care Teams Back Filler Operator Relationship Specialty Start Date End Date Pcp, No PCP - General General Medicine 11/13/24 documented as of this encounter
--- OUTSIDE RECORDS SUMMARY | 2024-12-22 13:54 | XMS_ITS | Data Portability ---
Author Organization [facility] Address [address] [place] [address] Assessment No assessment recorded. Plan of Treatment [...] SNOMED-CT Code Diagnosis ICD10 Code Diagnosis Note [id number] _[facility] _[facility] [address] [place] [address] 12/02/2015 16:22:06 12/02/2015 18:56:21 [id number] Francesco Batista DO [id number] [address] [place] [address] 08/28/2022 13:00:32 08/28/2022 13:23:33 History and physical examination, pre-employment [id number] Z02.1 Health Concerns Section Related Observation LastModified by Organization Detai ls LastModified Time None Recorded Concern Status LastModified by Organization Details LastModified Time None Recorded Advance Directives Directive None Recorded Payers Insurance Date Sequence Insurance Name Policy Number Policy Santillan Covered Member ID Santillan Member ID Guarantor Name 08/28/2022 1 [place] JUANCAR[place] (PPO) [id number] Eloise Laboy [id number] Yuniel Laboy 08/28/2022 OC-ESCREEN Yuniel Laboy [id number] Yuniel Laboy
--- OUTSIDE RECORDS SUMMARY | 2024-12-22 13:54 | XMS_ITS | Encounter Summary ---
Author Organization [facility] Address [address] [place] [address] Care Team Providers Care Wire Inspector Name Role Phone Pcp, No Primary Care Provider Unavailabl e Encounter Details Date Type Department Care Team (Late st Contact Info) Description 11/13/2024 Scanned Document [address] [place] [phone] Provider, Generic Social History Tobacco Use Types [...] Description 02/14/2025 1:00 PM EDT Office Visit [address] [address] Tripp Arellano-Irma Soriano, BUILDINGS AND GROUNDS DIRECTOR [address] [place] Jhon[address] [facility] [address] [place] [address] documented as of this encounter Visit Diagnoses Not on filedocumented in this encounter Care Teams Wire Inspector Relationship Specialty Start Date End Date Pcp, No PCP - General General Medicine 11/13/24 documented as of this encounter
--- OUTSIDE RECORDS SUMMARY | 2024-12-22 13:54 | XMS_ITS ---
Author Name [facility] Organization Unknown History of Medication Use Medication Directions Dispensed Refills Start Date End Date Stat us ibuprofen (MOTRIN) 800 mg tablet Take 1 tablet (800 mg total) by mouth 3 times daily (every 8 hours) as needed for moderate pain. 11/13/2024 active methocarbamol (ROBAXIN) 750 MG tablet Take 1 tablet (750 mg total) by mouth 3 (three) times a day. 11/13/2024 active predniSONE (DELTASONE) 20 MG tablet Take 2 tablets (40 mg total) by mouth daily. With food. 11/13/2024 active Problems Problem Status Onset Date Problem Type Date of Resoluti on Source Spondylosis [facility] Chronic bilateral low back pain with left-sided sciatica active [facility] Encounters Encounter Type Encounter Reason Primary Diagnosis Location Date Ambulatory [place] [facility] 11/13/2024 Ambulatory Other Other [place] [facility] 11/13/2024 Care Team Organization Name Specialty Phone Email Start Date End Da te [place] [facility] PCP Manager Validation 11/14/2024 12/14/2024 [place] [facility] NO PCP Primary Care 11/14/2024
[2024-12-22 14:07] LABS: MANUAL DIFF FLAG NO
[2024-12-22 14:33] LABS: Basophils Percent Auto 0.4 % (0-2); Eosinophils Percent Auto 0.8 % (0-4); Hematocrit 39.2 % (42.0-52.0); Hemoglobin 13.6 g/dl (14.0-18.0); Imm Gran Abs Auto 0.01 X10*3/uL (0.00-0.03); Imm Gran Pct Auto 0.2 % (0.0-0.4); Lymphocytes Absolute Auto 1.3 X10*3/uL (1.2-4.9); Lymphocytes Percent Auto 25.3 % (20-40); Mean Corpuscular HGB Conc 34.7 g/dl (31.0-36.0); Mean Corpuscular Hemoglobin 29.4 pg (27.0-33.0); Mean Corpuscular Volume 84.8 fL (80.0-98.0); Mean Platelet Volume 9.3 fL (9.4-12.4); Monocytes Absolute Auto 0.5 X10*3/uL (0.1-1.2); Neutrophils Absolute Auto 3.2 x10*3/uL (2.0-8.3); Neutrophils Percent Auto 63.3 % (45-73); Platelet Count 215 X10*3/uL (160-400); Red Blood Count 4.62 X10*6/uL (4.60-5.80); Red Cell Distribution Width 12.4 % (11.0-16.0)
[2024-12-22 14:59] LABS: Iron 100 mcg/dL (45-160); Percent Iron Saturation 32 % (15-50); Total Iron Binding Capacity 310 mcg/dL (228-428); Unsaturated Iron Binding 210 ug/dL
[2024-12-22 15:13] LABS: TSH reflex Free T4 1.01 uIU/mL (0.32-4.0)
[2024-12-22 15:25] LABS: Vitamin B12 489 pg/mL (200-900)
== END 2024-12-22 13:51 | disposition home or self-care (01) ==
LOC: HO.LAB 13:50
PROVIDERS: Visit Provider Physician Assistant
DX: G47.00 Insomnia, unspecified (principal)
CPT/HCPCS: 36415; 82607; 83540; 84443; 85025

== ENCOUNTER 2025-01-25 12:07 | Outpatient (REF) | payer BC, SELFPAY ==
--- NOTE | 2025-01-25 12:09 | EEG_ITS ---
This is a 16 channel EEG with an EKG lead. The patient is reported awake during the tracing. Background EEG rhythm is 8 to 10 hertz, 5 to microvolts posteriorly lower amplitude fast anteriorly. Photic stimulation does not produce any significant abnormality. Hyperventilation is unremarkable. Cardiac lead does not reveal any significant abnormality. No sharp wave spikes or paroxysmal tendency noted. IMPRESSION: Unremarkable EEG. MD JANICE Blanco/TALAT / [id number]
--- OUTSIDE RECORDS SUMMARY | 2025-01-25 14:10 | XMS_ITS | Clinical Summary ---
Author Organization [facility] Address [address] [place] [address] Care Team Providers Care Body Die Maker Name Role Phone Pcp, No Primary Care [...] Description 11/13/2024 6:19 PM EDT Hospital Encounter [facility] [address] [place] [address] Juna Barajas MD 11/13/2024 5:25 PM EDT Office Visit [facility] [place] [address] [place] [address] Juan Barajas MD Beresford, Geneva N, APRN Chronic bilateral low back pain with left-sided sciatica (Primary Dx); Spondylosis 11/13/2024 Travel 11/13/2024 Scanned Document [address] [address] [place] [phone] Provider, Generic 11/13/2024 Scanned Document [facility] 80 [facility] [address] [place] [address] Provider, Generic from Last 3 [...] Description 02/14/2025 1:00 PM EDT Office Visit [facility] [address] [place] [address] Kartik Arellano, BRITT [address] [place] [address] Health Maintenance Due Date Last Done Comments [...] IMPRESSION: L5-S1 disc degeneration with spondylosis us [place] N Haresh PAINTER SPRING IMG DIAGNOSTIC IMAGING O RDERABLES Final Result from Last [address] [employer] [place] PPO [employer] [place] PPO Care Teams Body Die Maker Relationship Specialty Start Date End Date Pcp, No PCP - General General Medicine 11/13/24
== END 2025-01-25 12:08 | disposition home or self-care (01) ==
LOC: HO.NEURO 12:07
PROVIDERS: PCP Physician Assistant; Visit Provider Physician Assistant
DX: G47.00 Insomnia, unspecified (principal)
CPT/HCPCS: 95816

== ENCOUNTER 2025-02-07 16:41 | Outpatient (AMB) | payer BC, SELFPAY ==
--- NOTE | 2025-02-07 16:45 | A.OFFPC_ITS ---
Vital Signs 02/07/25 16:48 Height 5 ft 9 in Weight 8.618 kg BMI 2.8 BP 118/82 Respiration 14 Pulse 99 Pulse Source Pulse Oximeter Temp 97.7 F Temp Source Temporal Artery Scan Pulse Oximetry (%) 98 Oxygen Delivery Method Room Air Intake Visit Reasons: Annual Web Development Director Required: No Accompanied by: Self / Same As Patient Allergies No Known Allergies Allergy (Verified 02/07/25 16:45) Tobacco use date assessed: 12/20/24 Dental Screening Dental Screen Date: 12/20/24 HPI HPI Comments History of Present Illness Details 29-year-old male with history of lumbar radiculopathy, insomnia, anxiety presents to the office today for annual physical exam. He currently lives at home with his girlfriend and feels safe there. He does report following a healthy diet overall. He has not early exercising secondary to his low back issues. He reports only rare alcohol use. He does vape nicotine regularly. No cigarettes. Denies any illicit drug use or regular marijuana use. He is not currently working secondary to his back pain/radiculopathy. He is actively searching for a new job. He does have his GED and has worked in [employer] in the past. He is uncertain about going back to school. Lumbar radiculopathy-no longer in physical therapy due to insurance reasons. 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 He does use ibuprofen. Did not start the gabapentin given concerns on side effects. He does report the pain is somewhat improved but does not feel he can go back to his job. He has not yet followed up with pain management. Anxiety/insomnia-some improvement with sleep with the hydroxyzine. Has not yet made an appointment/sought out counseling Concerns: Reports a lump behind the left ear present for about 10 years. Occasionally swell with mild discomfort but overall not bothersome. No fevers, chills, severe pain, ear pain. Health Maintenance: Colonoscopy starting age 44 ROS: General: No fevers, malaise, unintentional weight loss HEENT: No blurred vision, diplopia. No sore throat, nasal congestion, rhinorrhea, sinus pain, ear pain Neck - no adenopathy Cardiovascular: No chest pain, palpitations, or leg edema Respiratory: No shortness of breath, wheezing, cough GI: No abdominal pain, nausea, vomiting, diarrhea, constipation, melena, hematochezia : No dysuria, hematuria, increased urinary frequency, decreased urinary output MSK: No myalgia, see hpi Neuro: No headaches, weakness, paresthesias Psych: no depression. No AH/VH. No SI/HI. see hpi Skin: No rashes or lesions. see hpi EXAM: Constitutional - Awake and Alert, No apparent distress Eyes - PERRLA, EOMI. Anicteric Ears - external ear normal, canals with scant cerumen but otherwise clear, TMs intact and pearly newsome with good cone of light. Left ear- small post pauricular node modile and firm, no overlying erythema or pain, likely shoddy Nose- septum midline, nares clear, no sinus tenderness Mouth/throat- mucosa moist, tongue and uvula midline, no erythema/edema or tonsillar adenopathy. Neck-trachea midline, thyroid symmetric without palpable nodules, no adenopathy Cardiovascular - S1S2, RRR, No edema Respiratory - Normal lung expansion, Normal respiratory effort, No respiratory distress, CTA bilaterally Gastrointestinal - NT / ND; +BS; No rebound or guarding - No CVA tenderness Extremities - no calf tenderness bilaterally, no swelling Musculoskeletal - Normal inspection, normal ROM Skin - Warm/Dry Neurological - Alert & oriented x3, CN II-XII in tact, 5/5 strength BUE and BLE Psychological - Appropriate affect [facility] Medical History (Updated 12/20/24 @ 17:37 by JENNIFER Mejía) Constipation GERD (gastroesophageal reflux disease) Anxiety Palpitations Labyrinthitis, bilateral Other specified dorsopathies, sacral and sacrococcygeal region Pain in left hip Other obesity due to excess calories Iron deficiency anemia, unspecified Abnormal level of enzymes in specimens from male genital organs Acute pharyngitis, unspecified Low testosterone Anemia Fatigue Vitamin D deficiency Family History (Updated 12/20/24 @ 16:33 by YISEL Odonnell) Mother No problems noted. Father No problems noted. Social History (Updated 12/20/24 @ 16:34 by YISEL Odonnell) Housing: Apartment Alcohol intake: current Alcohol intake frequency: holidays/special occasions only Tobacco use type: Smokeless Tobacco e-Cigarette/Vaping Use: Currently Using service: No Current occupational status: employed Cognitive needs: No Hearing needs: No Vision needs: Yes (Rx glasses) Questionnaire Thrive Questionnaire Date Thrive assessed: 12/20/24 ROOSEVELT-7 AMB Questionnaire ROOSEVELT-7 Date ROOSEVELT - 7 assessed: 12/20/24 Source: Developed by Drs. Bartolo Cook, Rhina Finch, Be Ashby and colleagues, with an educational zayda from [email or web address]. Physical exam (Primary Care) Vital Signs: Last Vital Signs Temp 97.7 F 02/07/25 16:48 Pulse 99 02/07/25 16:48 Resp 14 02/07/25 16:48 BP 118/82 02/07/25 16:48 Pulse Ox 98 02/07/25 16:48 Oxygen Delivery Method Room Air 02/07/25 16:48 BMI result Body Mass Index 2.8 Tobacco/Smoking Status: Tobacco use Status Tobacco use date assessed 12/20/24 02/07/25 16:50 Tobacco use type Smokeless Tobacco 02/07/25 16:50 e-Cigarette/Vaping Use Currently Using 02/07/25 16:50 Thrive Assessment: Date of Thrive Assessment Date Thrive assessed 12/20/24 02/07/25 16:50 Coding Level of Care Code Est Pt Prev Care 18-39y(28665) Diagnoses Routine medical exam Z00.00 Insomnia G47.00 Anxiety F41.9 Lumbar radiculopathy M54.16 Assessment & Plan Assessment & Plan (1) Routine medical exam: Code(s): Z00.00 - Encounter for general adult medical examination without abnormal findings Plan: 29-year-old male presents for annual physical exam. Counseled on vaping cessation. Has not had success with nicotine patches. Suggested hypnosis (2) Insomnia: Code(s): G47.00 - Insomnia, unspecified Category: Medical Plan: Improved. Continue hydroxyzine (3) Anxiety: Code(s): F41.9 - Anxiety disorder, unspecified Category: Medical Plan: Persistent. Recommend counseling (4) Lumbar radiculopathy: Code(s): M54.16 - Radiculopathy, lumbar region Category: Medical Plan: Improving. Continue ibuprofen and stretches. Ice/heat and topical analgesics. Recommend scheduling follow-up appointment with pain management Plan Follow-up in the office for annual physical exam, sooner if needed Reviewed previous labs, no significant abnormalities Screening colonoscopy age 44 Continue following for annual skin exams and use sun protection Annual eye exams Wear seat belt in car Recommend regular exercise and healthy diet Patient Instructions: [email or web address]
[2025-02-07 16:48] VITALS: BP 118/82; PULSE 99; RESP 14; TEMP 36.5; O2SAT 98
--- OUTSIDE RECORDS SUMMARY | 2025-02-07 18:51 | XMS_ITS | Clinical Summary ---
Author Organization [facility] Address [address] [place] [address] Care Team Providers Care Heel Stainer Name Role Phone Pcp, No Primary Care [...] 6:19 PM EDT Hospital Encounter [facility] [address] [place] [address] Juan Barajas MD 11/13/2024 5:25 PM EDT Office Visit [facility] [address] [place] [address] Juan Barajas MD [place], [place] N, APRN Chronic bilateral low back pain with left-sided sciatica (Primary Dx); Spondylosis 11/13/2024 Travel 11/13/2024 Scanned Document [address] [place] [id number] Provider, Generic 11/13/2024 Scanned Document [facility] [address] [facility] [address] [place] [address] Provider, Generic from Last 3 [...] 103 11/13/2024 5:39 PM EDT Temperature 36.8 C (98.2 F) 11/13/2024 5:39 PM EDT Respiratory Rate - - Oxygen Saturation 100% [...] Description 02/14/2025 1:00 PM EDT Office Visit [facility] [id number] [place] [address] Kartik Arellano APRN [address] [place] [address] Health Maintenance Due Date Last Done Comments [...] degeneration with spondylosis us Claire N Haresh [employer] FEEDER IMG DIAGNOSTIC IMAGING O RDERABLES Final Result from Last [address] PPO [employer] [place] PPO Care Teams Heel Stainer Relationship Specialty Start Date End Date Pcp, No PCP - General General Medicine 11/13/24
== END 2025-02-07 17:13 | disposition home or self-care (01) ==
LOC: HO.HMCHD 16:41
PROVIDERS: PCP Physician Assistant; Visit Provider Physician Assistant
DX: Z00.00 Encounter for general adult medical examination without abnormal findings (principal); G47.00 Insomnia, unspecified; F41.9 Anxiety disorder, unspecified; M54.16 Radiculopathy, lumbar region